=== PATIENT | female | born 1995 | race Two or more races ===

== ENCOUNTER 2022-03-24 12:10 | Emergency (ER) | payer SELFPAY ==
[~2022-03-24] VITALS: Ht 142.2 cm; Wt 59.0 kg
[2022-03-24] MEDS ORDERED: ACETAMINOPHEN 500 MG TAB PO ONE (12:45)
[2022-03-24] MEDS ORDERED: SODIUM CHLORIDE 0.9% 1,000 ML IV ONE (12:45)
[2022-03-24 13:09] LABS: Urine Bacteria NONE SEEN /hpf (None Seen); Urine Blood 3+ /uL (Negative); Urine Specific Gravity 1.029 (1.001-1.035); Urine WBC 19 /hpf (0 - 5)
[2022-03-24 13:27] LABS: Alcohol, Urine < 3.0 mg/dL (0-10); Amphetamine Screen, Urine NEGATIVE (NEGATIVE); Barbiturate Scree,Urine NEGATIVE (NEGATIVE); Benzodiazephine Screen, Urine NEGATIVE (NEGATIVE); Cannabinoid Screen, Urine NEGATIVE (NEGATIVE); Cocaine Screen, Urine NEGATIVE (NEGATIVE); Opiate Scree,Urine NEGATIVE (NEGATIVE); Phencyclidine Screen, Urine NEGATIVE (NEGATIVE)
[2022-03-24 13:58] LABS: Basophils # (auto) 0 10 ^3/uL (0-0.2); Eosinophils # (auto) 0 10 ^3/uL (0-0.8); Eosinophils % (auto) 0.1 % (0.0-7.0); Hematocrit 45.5 % (36.0-46.0); Hemoglobin 15.1 g/dL (12.2-16.2); Lymphocytes # (auto) 0.3 10 ^3/uL (0.4-5.4); Lymphocytes % (auto) 4.7 % (10.0-50.0); Mean Corpuscular Hemoglobin 29.4 pg (28.0-32.0); Mean Corpuscular Hgb Conc. 33.3 g/dL (32.0-36.0); Mean Corpuscular Volume 88.5 fL (80.0-100.0); Monocytes # (auto) 0.2 10 ^3/uL (0-1.3); Monocytes % (auto) 4.1 % (0.0-12.0); Neutrophils # (auto) 5.5 10 ^3/uL (1.6-8.6); Neutrophils % (auto) 91.1 % (37.0-80.0); Nucleated Red Blood Cells % 0.1 %; Red Blood Cells 5.14 10^6/uL (4.0-5.20); Red Cell Distribution Width 13.7 % (11.8-14.3); White Blood Cell 6.1 10^3/uL (4.4-10.8)
[2022-03-24 14:21] LABS: BUN/Creatinine Ratio 14.8; Calcium 8.7 mg/dL (8.5-10.1); Potassium 3.7 mmol/L (3.5-5.1)
[2022-03-24] MEDS ORDERED: cefTRIAXone 1GM/50ML D5W 50 ML IV ONE (15:30)
[2022-03-24 15:44] VITALS: BP 114/69
[2022-03-24] MEDS ORDERED: ACET-1080 PO (15:44)
== END 2022-03-24 15:49 | disposition home or self-care (01) ==
LOC: ER 12:10
DX: R31.9 Hematuria, unspecified (principal); B34.9 Viral infection, unspecified
CPT/HCPCS: 36415; 74176; 80048; 80307; 81001; 81025; 85025; 96361; 96365; 99284; J0696; J7030

== ENCOUNTER 2022-09-08 22:49 | Emergency (ER) | payer OTHER ==
[~2022-09-08] VITALS: Ht 142.2 cm; Wt 64.8 kg
[~2022-09-08 22:49] MED LIST: ACET-1080 PO
[2022-09-08 23:15] VITALS: BP 125/86
[2022-09-09] MEDS ORDERED: IBUPROFEN 800 MG TAB PO ONE (02:15)
[2022-09-09] MEDS ORDERED: IBUP800T27 PO (02:23)
== END 2022-09-09 03:11 | disposition home or self-care (01) ==
LOC: ER 22:49
DX: S62.667A Nondisplaced fracture of distal phalanx of left little finger, initial encounter for closed fracture (principal); F17.210 Nicotine dependence, cigarettes, uncomplicated; X58.XXXA Exposure to other specified factors, initial encounter; Y93.89 Activity, other specified; Y92.89 Other specified places as the place of occurrence of the external cause; Y99.8 Other external cause status
CPT/HCPCS: 29130; 73140